=== PATIENT | female | born 2000 | race African-American/Black ===

== ENCOUNTER → 2018-01-22 19:38 | Emergency (ER) | payer OTHER ==
[~2018-01-22 19:38] MED LIST: Ciprofloxacin 0.3% OPTH.SOL* 2.5 ML BTL RIGHT EYE ONE; Ibuprofen TAB* 600 MG PO ONE
[2018-01-22 20:16] VITALS: BP 118/73
--- NOTE | 2018-01-22 21:18 | UC ---
FLU HPI - HPI Summary HPI Summary: 17 y/o female adolescent presents to the urgent care c/o sore throat, ORTEGA, fever , body aches since yesterday. Pt also states this morning she woke up w/ her RT eye red w/ yellowish crusting eye discharge. She states it was itching yesterday , she was rubbing her eye at times. She thinks now she has pink eye. Pt states fever developed today. Pain w/ swallowing is 8/10 associated w/ +PND and clear nasal congestion. She has been taking Tylenol PO to alleviate symptoms. Last dose taken was this morning. Pt has not taken the flu vaccine. Pt denies SOB, chest pain, abdominal pain, N/V/D. Pt is UTD w/ all vaccines for her age. - History of Current Complaint Chief Complaint: UCGeneralIllness Stated Complaint: FEVER,ST,WEAK,DIZZY Time Seen by Provider: 01/22/18 20:21 Hx Obtained From: Patient Hx Last Menstrual Period: 01/22/18 Onset/Duration: Gradual Onset, Lasting Days - 1 day, Still Present, Worse Since - today w/ fever Severity Currently: Mild Severity Initially: Severe Pain Intensity: 8 - sore throat w/ swallowing Pain Scale Used: 0-10 Numeric Associated Signs & Symptoms: Positive: Fever, Myalgia, Sore Throat, Nasal Congestion, Headache - Risk Factors Influenza Risk Factors: Negative - Allergy/Home Medications Allergies/Adverse Reactions: Allergies Allergy/AdvReac Type Severity Reaction Status Date / Time No Known Allergies Allergy Verified 01/22/18 20:10 Home Medications: Home Medications Acetaminophen TAB* [Tylenol TAB*] 650 mg PO Q4H PRN 01/22/18 [History Confirmed 01/22/18] PMH/Surg Hx/FS Hx/Imm Hx Previously Healthy: Yes - Pt denies PMHX - Surgical History Surgical History: None - Family History Known Family History: Positive: None - Pt denies FMHX - Social History Occupation: Student Lives: Dormitory/Roommates Alcohol Use: None Substance Use Type: None Smoking Status (MU): Never Smoked Tobacco - Immunization History Vaccination Up to Date: Yes Review of Systems All Other Systems Reviewed And Are Negative: Yes Constitutional: Positive: Fever, Chills, Fatigue, Other - body aches Skin: Positive: Negative Eyes: Positive: Drainage - yellowish, Eye Redness - RT eye redness ENT: Positive: Sore Throat, Nasal Discharge - clear, Sinus Congestion Respiratory: Positive: Negative Cardiovascular: Positive: Negative Gastrointestinal: Positive: Negative Genitourinary: Motor: Positive: Negative Neurovascular: Positive: Negative Musculoskeletal: Positive: Myalgia Neurological: Positive: Headache Psychological: Positive: Negative Is Patient Immunocompromised?: No Physical Exam - Summary Physical Exam Summary: VITAL SIGNS: Reviewed. GENERAL: Patient is a well developed and nourished female adolescent who is sitting comfortable in the examining table. Patient is not in any acute respiratory distress. HEAD AND FACE: No signs of trauma. No ecchymosis, hematomas or skull depressions. No sinus tenderness. EYES: PERRLA, EOMI x 2, RT conjunctiva injectected w/ eyelashes w/ crusting yellowish drainage. Left conjunctiva clear, no nystagmus. No photophobia. EARS: Hearing grossly intact. Ear canals and tympanic membranes are within normal limits. MOUTH: Positive pharynx with erythema, mild exudates, palatal petechiae. No B/L tonsillar enlargement, mild exudate. Uvula in midline. NECK: Supple, trachea is midline, Positive anterior cervical lymphadenopathy, no JVD, no carotid bruit, no c-spine tenderness, neck with full ROM. No meningeal signs, no Kernig's or brudzinskis signs. CHEST: Symmetric, no tenderness at palpation LUNGS: Clear to auscultation bilaterally. No wheezing or crackles. CVS: Regular rate and rhythm, S1 and S2 present, no murmurs or gallops appreciated. ABDOMEN: Soft, non-tender. No signs of distention. No rebound no guarding, and no masses palpated. Bowel sounds are normal. EXTREMITIES: FROM in all major joints, no edema, no cyanosis or clubbing. NEURO: Alert and oriented x 3. No acute neurological deficits. Speech is normal and follows commands. SKIN: Dry and warm Triage Information Reviewed: Yes Vital Signs: Initial Vital Signs Temp 100.7 F 01/22/18 20:11 Pulse 106 01/22/18 20:11 Resp 18 01/22/18 20:11 BP 118/73 01/22/18 20:11 Pulse Ox 100 01/22/18 20:11 Flu Course/Dx - Course Course Of Treatment: 17 y/o female adolescent presents to the urgent care c/o sore throat, ORTEGA, fever, body aches since yesterday. Pt also states this morning she woke up w/ her RT eye red w/ yellowish crusting eye discharge. She states it was itching yesterday, she was rubbing her eye at times. She thinks now she has pink eye. Pt states fever developed today. Pain w/ swallowing is 8/10 associated w/ +PND and clear nasal congestion. She has been taking Tylenol PO to alleviate symptoms. Last dose taken was this morning. Pt has not taken the flu vaccine. Pt denies SOB, chest pain, abdominal pain, N/V/D. Pt is UTD w/ all vaccines for her age. Hx obtained. Pt with viral syndrome and RT eye bacterial conjuntivitis on examination. Rapid strep ordered, result: negative.Influenza A& B ordered:negative. Pt given ibuprofen PO at the clinic to decrease temp 102.2F. Medication given by nurse. pt tolerated well medication and temp decrease. Pt also given at the clinic Cirofloxacin ophthalmic drops to alleviate bacterial conjunctivitis. Pt Advised on hand washing and wear a mask to avoid spreading. Pt advised to rest, increase fluid intake, eat well and avoid strenuous exercise. If symptoms do not improve or worsen advised to return to the urgent care or f/u with her PCP for further evaluation and treatment. D/C instructions explained. Pt understood and agreed with plan of care. - Differential Dx/Diagnosis Differential Diagnosis/HQI/PQRI: Bronchitis, Influenza, Pneumonia, Upper Respiratory Infection, Other - pharyngitis Provider Diagnoses: 1-Viral syndrome. 2- RT eye bacterial conjunctivitis Discharge - Sign-Out/Discharge Documenting (check all that apply): Patient Departure - d/c home All imaging exams completed and their final reports reviewed: No Studies - Discharge Plan Condition: Stable Disposition: HOME Prescriptions: Ibuprofen TAB* [Motrin TAB* 600 MG] 600 mg PO Q6H PRN #30 tab PRN Reason: Fever Patient Education Materials: Viral Syndrome (ED), Conjunctivitis (ED) Forms: *School Release Referrals: [facility],[place] [Primary Care Provider] - Additional Instructions: 1- Rapd strep: Negative Influenxa A&B: negative 2-Please take ibuprofen PO q6-8hrs prn as instructed after meals to alleviate fever pain and swelling. alternate w/ Tylenol if fever is not controlled. Increase fluid intake, eat well, rest and avoid strenuous exercise 3-If symptoms do not improve or worsen and fever is not controlled w/ Tylenol/ Ibuprofen PO please go immediately to the ER for further manage 4- Apply ciprofloxacin drops as directed on your Rt eye. Encourage hand washing to avoid spread. If not improvement of symptoms please return to the urgent care or your PCP for further management - Billing Disposition and Condition Condition: STABLE Disposition: Home
== END | disposition home or self-care (01) ==
LOC: UCEAST 19:38
DX: B34.9 Viral infection, unspecified (principal); H10.31 Unspecified acute conjunctivitis, right eye
CPT/HCPCS: 87651; 99203; A9270-GY; G0463